=== PATIENT | female | born 1980 | race Caucasian/White ===

== ENCOUNTER → 2016-10-04 | Outpatient (REF) | payer BC ==
[2016-10-04 21:15] LABS: FREE T4 1.01 NG/DL (0.76-1.46)
== END ==
LOC: M LABDRAWP 08:54
PROVIDERS: ATTEND Physician Assistant Medical
DX: E03.9 Hypothyroidism, unspecified (principal)

== ENCOUNTER → 2017-03-08 | Outpatient (CLI) | payer BC | LOC: M WUC 16:01 | PROVIDERS: ATTEND Obstetrics & Gynecology | DX: Z32.01 Encounter for pregnancy test, result positive (principal) ==

== ENCOUNTER → 2017-10-05 | Outpatient (REF) | payer BC ==
[2017-10-05 21:47] LABS: FREE T3 2.6 PG/ML (2.2-4.0); FREE T4 1.09 NG/DL (0.76-1.46)
== END ==
LOC: M LAB REF 20:58 → M LABDRWAD 20:58
DX: Z34.82 Encounter for supervision of other normal pregnancy, second trimester (principal); E03.9 Hypothyroidism, unspecified
CPT/HCPCS: 84443

== ENCOUNTER → 2017-11-19 | Outpatient (REF) | payer BC ==
[2017-11-19 20:49] LABS: FREE T4 1.49 NG/DL (0.76-1.46); THYROID STIMULATING HORMONE 0.032 uIU/ML (0.358-3.740)
== END ==
LOC: M LABDRWAD 12:31
DX: E89.0 Postprocedural hypothyroidism (principal)
CPT/HCPCS: 84443

== ENCOUNTER 2020-04-05 13:20 | Emergency (ER) | payer BC ==
[2020-04-05] MEDS ORDERED: TETRACAINE 0.5% OPHTH SOLN 4ML As Ordered ONE (15:28)
[2020-04-05] MEDS ORDERED: FLUORESCEIN OPHTH 1 MG STRIP As Ordered ONE (15:28)
[2020-04-05] MEDS ORDERED: TETRACAINE 0.5% OPHTH SOLN 4ML ONE (15:30)
[2020-04-05] MEDS ORDERED: FLUORESCEIN OPHTH 1 MG STRIP ONE (15:30)
== END 2020-04-05 18:10 | disposition other institution (70) ==
LOC: M ED 13:20
DX: T26.01XA Burn of right eyelid and periocular area, initial encounter (principal); T20.10XA Burn of first degree of head, face, and neck, unspecified site, initial encounter; T31.0 Burns involving less than 10% of body surface; X12.XXXA Contact with other hot fluids, initial encounter; Y92.099 Unspecified place in other non-institutional residence as the place of occurrence of the external cause; Y93.89 Activity, other specified; Y99.9 Unspecified external cause status; Z53.21 Procedure and treatment not carried out due to patient leaving prior to being seen by health care provider; E03.9 Hypothyroidism, unspecified; Z79.899 Other long term (current) drug therapy; Z88.8 Allergy status to other drugs, medicaments and biological substances